=== PATIENT | male | born 1985 | race Caucasian/White ===

== ENCOUNTER 2023-10-04 19:37 | Emergency (ER) | payer SELFPAY ==
[~2023-10-04] VITALS: Ht 188 cm; Wt 95.3 kg
[2023-10-04 19:38] VITALS: BP 133/80; PULSE 102; RESP 16; TEMP 97.8; O2SAT 98
[2023-10-04 19:50] VITALS: O2SAT 97
[2023-10-04 20:23] LABS: BASOPHILS % (AUTO) 0.5 % (0.0-2.0); EOSINOPHILS # (AUTO) 0.1 K/uL (0-0.4); EOSINOPHILS % (AUTO) 1.5 % (0.0-4.0); HEMATOCRIT 39.4 % (36-52); HEMOGLOBIN 13.7 g/dL (12.0-18.0); LYMPHOCYTES # (AUTO) 1.7 K/uL (2.0-11.5); LYMPHOCYTES % (AUTO) 20.4 % (20.5-51.1); MEAN CORPUSCULAR HEMOGLOBIN 32 pg (27-31); MEAN CORPUSCULAR HGB CONC 35 g/dL (33-37); MONOCYTES # (AUTO) 0.7 K/uL (0.8-1.0); MONOCYTES % (AUTO) 8.4 % (1.7-9.3); NEUTROPHILS # (AUTO) 5.9 K/uL (1.8-7.7); NEUTROPHILS % (AUTO) 69.2 % (42.2-75.2); PLATELET COUNT (AUTO) 220 K/uL (140-450); RED BLOOD CELL COUNT(AUTO) 4.33 MIL/uL (4.20-6.10); RED CELL DISTRIBUTION WIDTH 14.7 % (11.6-13.7); WHITE BLOOD COUNT (AUTO) 8.6 K/uL (4.8-10.8)
[2023-10-04 20:30] LABS: CALCIUM 8.3 mg/dL (8.5-10.1); CARBON DIOXIDE 24.9 mmol/L (21-32); CREATININE 1.3 mg/dL (0.6-1.3); POTASSIUM 3.9 mmol/L (3.5-5.1)
[2023-10-04 20:36] LABS: CREATINE KINASE, TOTAL 737 U/L (39-308)
[2023-10-04] MEDS: NACL 0.9% 1,000 ML IV ONE (21:15)
[2023-10-05] VITALS (10 sets, daily range): O2SAT 97–100
[2023-10-05] MEDS: KETOROLAC 30 MG/ML VIAL IVP ONE (00:05)
[2023-10-05 00:31] LABS: APPEARANCE,URINE CLEAR (CLEAR); BILIRUBIN,URINE NEGATIVE (NEGATIVE); BLOOD, URINE NEGATIVE (NEGATIVE); COLOR,URINE YELLOW (YELLOW); LEUKOCYTE ESTERASE ,URINE NEGATIVE (NEGATIVE); NITRITE, URINE NEGATIVE (NEGATIVE); PROTEIN,URINE NEGATIVE (NEGATIVE); UGLUCOSE NEGATIVE (NEGATIVE)
[2023-10-05 01:12] LABS: AMPHETAMINE, URINE POSITIVE ng/ml (NEG <=1000); BARBITURATE, URINE NEGATIVE ng/ml (NEG <=200); BENZODIAZEPINE, URINE NEGATIVE ng/mL (NEG <=200); CANNABINOID, URINE POSITIVE ng/mL (NEG <=50); COCAINE, URINE NEGATIVE ng/mL (NEG <=300); OPIATE, URINE NEGATIVE ng/mL (NEG <=2000); PHENCYCLIDINE SCREEN,URINE NEGATIVE ng/mL (NEG <=25)
[2023-10-05] MEDS: LORazepam 1 MG TAB PO ONE ×2 (12:32→22:45)
[2023-10-06 00:05] VITALS: O2SAT 99
[2023-10-06 02:25] VITALS: O2SAT 99
[2023-10-06 05:21] VITALS: O2SAT 99
[2023-10-06 07:45] VITALS: O2SAT 99
[2023-10-06] MEDS: ARIPiprazole 10 MG TAB PO SCH (09:41)
[2023-10-06] MEDS: LORazepam 1 MG TAB PO PRN (09:42)
[2023-10-06 21:59] VITALS: O2SAT 99
[2023-10-07] MEDS: traZODone 50 MG TAB PO PRN (00:48)
[2023-10-07 03:52] VITALS: O2SAT 99
[2023-10-07 07:59] VITALS: O2SAT 99
[2023-10-07 09:29] VITALS: O2SAT 99
[2023-10-07 12:15] VITALS: O2SAT 99
[2023-10-07] MEDS: LORazepam 2 MG/ML VIAL IM ONE (13:15)
[2023-10-07] MEDS: diphenhydrAMINE 50 MG/ML VIAL IM ONE (13:15)
[2023-10-07] MEDS: HALOPERIDOL IM 5 MG/ML VIAL IM ONE (13:15)
[2023-10-07 14:55] VITALS: O2SAT 99
[2023-10-07 16:02] VITALS: BP 132/64; PULSE 64; RESP 16; TEMP 98.1; O2SAT 99
== END 2023-10-07 16:02 ==
LOC: MED 19:37
DX: F15.129 Other stimulant abuse with intoxication, unspecified (principal); F25.0 Schizoaffective disorder, bipolar type; R79.89 Other specified abnormal findings of blood chemistry; Z20.822 Contact with and (suspected) exposure to COVID-19
CPT/HCPCS: 36415; 80048; 80305; 81003; 82550; 82553; 85025; 87426; 96361; 96372; 96374; 99285; J1885; J7030